=== PATIENT | female | born 1955 ===

== ENCOUNTER 2025-05-24 13:25 | Emergency (ER) | payer MEDICARE, SELFPAY ==
--- NOTE | 2025-05-24 13:26 | ED.SKABFB ---
HPI - Skin/Abscess/Foreign Bdy General Chief complaint: Skin/Abscess/Foreign Body Stated complaint: Insect Bite Time Seen by Provider: 05/24/25 13:26 Source: patient Mode of arrival: ambulatory Limitations: no limitations History of Present Illness HPI narrative: Nieves is a 70 year old male patient presenting to the clinic today with c/o insect bite x 2 days. She reports redness, swelling, pain to the right forearm/upper arm, and feeling feverish. Has not checked her temperature. She denies any history of diabetes. Thinks that a insect may have bit her. No chest pain or shortness of breath. Related Data Home Medications ?Medication ?Instructions ?Recorded ?Confirmed ?Last Taken ?Type albuterol sulfate 90 mcg/actuation inhalation 05/24/25 Unknown History aerosol inhaler atorvastatin 20 mg tablet mg 05/24/25 Unknown History buspirone 15 mg tablet mg 05/24/25 Unknown History cariprazine 1.5 mg capsule mg 05/24/25 Unknown History (Vraylar) celecoxib 100 mg capsule mg 05/24/25 Unknown History duloxetine 60 mg capsule,delayed mg PO 05/24/25 Unknown History release gabapentin 800 mg tablet mg 05/24/25 Unknown History hydrochlorothiazide 25 mg tablet mg 05/24/25 Unknown History isosorbide mononitrate 30 mg mg PO 05/24/25 Unknown History tablet,extended release 24 hr lamotrigine 100 mg tablet mg 05/24/25 Unknown History levothyroxine 75 mcg tablet mcg 05/24/25 Unknown History linaclotide 145 mcg capsule mcg 05/24/25 Unknown History (Linzess) metoprolol succinate 50 mg mg PO 05/24/25 Unknown History tablet,extended release 24 hr montelukast 10 mg tablet mg 05/24/25 Unknown History omeprazole 40 mg capsule,delayed mg 05/24/25 Unknown History release thiamine HCl (vitamin B1) 100 mg mg 05/24/25 Unknown History tablet tizanidine 4 mg tablet mg 05/24/25 Unknown History zolpidem 5 mg tablet mg 05/24/25 Unknown History Allergies Allergy/AdvReac Type Severity Reaction Status Date / Time No Known Allergies Allergy Mild Verified 05/24/25 13:31 Review of Systems Review of Systems: Pertinent positives per HPI. Patient denies any fever, chills, rash, headache, visual changes, dizziness, cough, runny nose, sore throat, shortness of breath, chest pain, palpitations, nausea, vomiting, diarrhea, constipation, abdominal pain, or any urinary issues. PMFSH Comments At the time of my signature, I reviewed and agree with the nursing past medical, surgical, social, and family history. There is no relevant family history pertinent to the patient complaint. Exam Narrative: General: Well-developed, well nourished, in no apparent distress Head: Normocephalic, atraumatic. Cardio: Regular rate and rhythm, s1 and s2 normal, no murmur appreciated. Resp: Clear to auscultation bilaterally, no rhonchi, rales, wheezing or rubs. Integumentary: [place], warm, and dry, possible insect bite to the right posterior forearm with redness, induration, tenderness, and erythema to the right proximal forearm and distal humerus. Redness measures 21 cm long and 15 cm around the forearm Course Course Emergency Course: Portions of this record may have been created with voice recognition software. Level of Care: Express Care Visit Vital Signs Vital signs: Vital Signs Temperature 36.8 C 05/24/25 13:38 Pulse Rate 80 05/24/25 13:38 Respiratory Rate 14 05/24/25 13:38 Blood Pressure 97/44 L 05/24/25 13:38 Pulse Oximetry 100 05/24/25 13:38 Oxygen Delivery Room Air 05/24/25 13:38 Temperature 36.8 C 05/24/25 13:38 Pulse Rate 80 05/24/25 13:38 Respiratory Rate 14 05/24/25 13:38 Blood Pressure 97/44 L 05/24/25 13:38 Pulse Oximetry 100 05/24/25 13:38 Oxygen Delivery Room Air 05/24/25 13:38 Vital signs reviewed MDM - Skin/Abscess/Foreign Bdy MDM Narrative Medical decision making narrative: At the time of visit patient is resting comfortably on the exam table. Patient appears to be nontoxic. C/o insect bite x 2 days. She reports redness, swelling, pain to the right forearm/upper arm, and feeling feverish. Has not checked her temperature. She denies any history of diabetes. Thinks that a insect may have bit her. No chest pain or shortness of breath. Blood pressure is 97/44 otherwise normal vitals Plan: I suspect patient has a cellulitis infection to the right forearm extending into the right upper arm. Will send in prescription for Keflex and Bactrim. If symptoms worsen-increase in pain, redness, fever not controlled by Tylenol Motrin, weakness, lethargy, effusion, or streaking patient should go to the emergency room Supportive measures were discussed with the patient and they voiced understanding discharge instructions and agrees to treatment plan. Return precautions reviewed Differential Diagnosis Differential diagnosis: Likely abscess of skin or subcutaneous tissue, viral exanthem, dermatophytosis, urticaria, herpes zoster, allergic reaction to drug, cellulitis, eczema, insect bites, impetigo and contact dermatitis Discharge Plan Discharge Clinical Impression: Cellulitis Qualifiers: Site of cellulitis: extremity Site of cellulitis of extremity: upper extremity Laterality: right Qualified Code(s): L03.113 - Cellulitis of right upper limb Patient Disposition: Home Condition: Stable Instructions: Antibiotic Form, Cellulitis (ED) Additional Instructions: Take Bactrim and Keflex as prescribed-take all this medication until it is gone Increase fluids and stay well hydrated Keep wound clean and dry Watch for signs and symptoms of worsening infection-fever not controlled by Tylenol or Motrin, increase redness, streaking, swelling, purulent discharge, or increase in pain. Follow up with your PCP for suture removal or return to the Express care. Patient Language: Welsh Prescriptions: New sulfamethoxazole-trimethoprim [Bactrim DS] 800-160 mg tablet 1 tablet PO Q12H 10 Days Qty: 20 0RF cephalexin 500 mg capsule 500 mg PO Q8H 10 Days Qty: 30 0RF No Action atorvastatin 20 mg tablet tizanidine 4 mg tablet metoprolol succinate 50 mg tablet extended release 24 hr PO isosorbide mononitrate 30 mg tablet extended release 24 hr PO thiamine HCl (vitamin B1) 100 mg tablet omeprazole 40 mg capsule,delayed release(DR/EC) levothyroxine 75 mcg tablet gabapentin 800 mg tablet montelukast 10 mg tablet hydrochlorothiazide 25 mg tablet zolpidem 5 mg tablet albuterol sulfate 90 mcg/actuation HFA aerosol inhaler INHALATION celecoxib 100 mg capsule lamotrigine 100 mg tablet buspirone 15 mg tablet duloxetine 60 mg capsule,delayed release(DR/EC) PO Linzess 145 mcg capsule Vraylar 1.5 mg capsule Follow-up/Referrals: Segun,Thee Cruz MD [Primary Care Provider] - Time of Disposition: 13:43 Quality NIHSS Nursing Documentation ED NIHSS nursing documentation: reviewed/agree
[2025-05-24 13:38] VITALS: BP 97/44; PULSE 80; RESP 14; TEMP 36.8; O2SAT 100
== END 2025-05-24 13:48 | disposition home or self-care (01) ==
PROVIDERS: Emergency Provider Nurse Practitioner Family; PCP Internal Medicine
DX: L03.113 Cellulitis of right upper limb (principal); Z79.899 Other long term (current) drug therapy
CPT/HCPCS: 99203; G0463